=== PATIENT | female | born 1985 | race Caucasian/White ===

== ENCOUNTER 2017-02-23 08:39 | Emergency (ER) | payer OTHER ==
[~2017-02-23] VITALS: Ht 160 cm; Wt 83.0 kg
[~2017-02-23 08:39] MED LIST: SERT50TA PO; [UNRECOGNIZED DRUG - REMARK] TOP
[2017-02-23 08:48] VITALS: Ht 160 cm; Wt 83.0 kg
[2017-02-23] MEDS ORDERED: KETOROLAC TROMETHAMINE 60 MG/2 ML VIAL IM STA (09:07)
[2017-02-23] MEDS ORDERED: DEXAMETHASONE SOD INJ 4 MG/ML 5 ML VIAL IM STA (09:07)
[2017-02-23] MEDS ORDERED: DEXAMETHASONE **PF** INJ 10 MG/ML VIAL IM ONE (09:15)
[2017-02-23] MEDS ORDERED: CYCL5TAB PO ×2 (10:16→10:29)
[2017-02-23] MEDS ORDERED: OXYC1TAB3 PO ×2 (10:16→10:29)
[2017-02-23] MEDS ORDERED: METH4PAK PO ×2 (10:16→10:29)
--- NOTE | 2017-02-23 10:17 | EMERGENCY ROOM VISIT NOTE ---
History First contact with patient: 08:57 Chief Complaint: BACK PAIN Stated Complaint: EXTREME BACK AND LEG PAIN History of Present Illness The patient is a 32 year old female who presents to the Emergency Room via private vehicle accompanied by family with complaints of "extreme back and leg pain". The patient states that she has a history of low back pain, and notes that since 6 AM this morning she has had sharp shooting pain down both legs, and notes pain in the low back region. There is no urinary symptoms. She denies taking anything for pain today. It is worse with movement. She rates the pain as a 9/10. There is no abdominal pain, urinary symptoms, cauda equina syndrome symptoms. She states this feels worse than previous bulging disc. Review of Systems A complete 6-point Review of Systems was discussed with the patient, with pertinent positives and negatives listed in the History of Present Illness. All remaining Review of Systems questions can be considered negative unless otherwise specified. Past Medical/Surgical History Medical Problems: (1) Anxiety (2) Back pain Family History Patient reports no known family medical history. Social History Smoking Status: Current Every Day Smoker Alcohol Use: occasionally Marital Status: Housing Status: lives with family, lives with significant other Occupation Status: employed Current/Historical Medications Scheduled Cyclobenzaprine Hcl (Flexeril), 5 MG PO TID Methylprednisolone (Medrol Dosepak), 0 PO DAILY Scheduled PRN Oxycodone Ir (Roxicodone Ir), 1-2 TAB PO Q4H PRN for Pain Physical Exam Vital Signs Date Time Temp Pulse Resp B/P (MAP) Pulse Ox O2 Delivery O2 Flow Rate FiO2 02/23/17 10:28 36.9 78 18 132/90 99 02/23/17 10:26 78 18 132/90 99 Room Air 02/23/17 08:48 36.9 79 18 170/122 99 Room Air Physical Exam VITAL SIGNS - Vital signs and nursing notes were reviewed. Stable. Hypertensive. GENERAL - 32-year-old female appearing her stated age who is in no acute distress. Communicates well with provider and answers questions appropriately. SKIN - Without rashes. HEAD - NC/AT. EYES - Sclera anicteric. EARS - No deformities of external structures noted on gross examination bilaterally. NOSE - Midline and without cyanosis. No epistaxis or purulent drainage noted. MOUTH/OROPHARYNX - Without perioral cyanosis. LUNGS - Chest wall symmetric without accessory muscle use, intercostals retractions, or central cyanosis. Normal vesicular breath sounds CTA B/L. No wheezes, rales, or rhonchi appreciated. CARDIAC - RRR with S1/S2. No murmur, rubs, or gallops appreciated. ABDOMEN - Abdominal contour normal without pulsations or visible masses. BS normoactive all four quadrants. No tenderness, palpable masses, hepatosplenomegaly, or ascites noted. EXTREMITIES - No clubbing or peripheral cyanosis. No pretibial edema present. Negative straight leg raise. +5/5 strength noted in UE/LE bilaterally. NEUROLOGIC - Cranial nerves II through XII grossly intact. Sensory intact to light touch throughout. PSYCH - A&O, and cooperates fully with examiner. Pt is very pleasant and interacts well with examiner. Medical Decision & Procedures Medications Administered Medications (Trade) Dose Ordered Sig/Tara Route Start Time Stop Time Status Last Admin Dose Admin Ketorolac Tromethamine (Toradol Inj) 60 mg NOW STAT IM 02/23/17 09:07 02/23/17 09:09 DC 02/23/17 09:07 60 MG Dexamethasone Sodium Phosphate (Dexamethasone Inj Pf) 10 mg NOW ONCE IM 02/23/17 09:15 02/23/17 09:17 DC 02/23/17 09:15 10 MG Medical Decision Patient was seen and evaluated as above. After obtaining a thorough history and physical examination decision was made to provide Toradol as well as Decadron. I suspect she likely has either a small bulging disc or lumbar strain and perhaps both. She was reevaluated and was feeling better. Vital signs improved. I believe she is stable for outpatient management. There is no evidence of neurologic or vascular deficit. She is to follow-up with the family doctor. She was given a short course of pain medication, steroids and muscle relaxers. She was educated upon management, educated upon worrisome symptoms which to return, had questions and provided discharge, and was discharged home in good condition. No red flag identified in the [employer] drug monitoring system. She denied chance of . In evaluation treatment this patient following differential diagnoses were entertained: Lumbar strain, sprain, fracture, dislocation, herniated disc, among others. Impression Primary Impression: Back pain Departure Information Dispostion Home / Self-Care Condition GOOD Prescriptions Oxycodone Ir (Roxicodone Ir) 5 Mg Tab 1-2 TAB PO Q4H Y for Pain, #15 TAB For Initial Treatment Prov: Pablo Paul PA-C 02/23/17 Cyclobenzaprine Hcl (FLEXERIL) 5 Mg Tab 5 MG PO TID for 5 Days, #15 TAB PRN Prov: Pablo Paul PA-C 02/23/17 Methylprednisolone (MEDROL DOSEPAK) 4 Mg [place] 0 PO DAILY, #1 PKT Prov: Pablo Paul PA-C 02/23/17 Referrals Jimi Lacy M.D. (PCP) Patient Instructions My [facility] Additional Instructions You have been treated in the Emergency Department for Back Pain. You have been prescribed Oxy IR to be used for pain control. This is a narcotic medication. You cannot drive or consume alcohol while on this medicine. This medicine should only be used for pain that cannot be controlled with over-the- counter pain medicines. You have been prescribed Flexeril (cyclobenzaprine) 1-2 tabs orally, three times per day. Do NOT exceed 30 mg (6 tabs) per day. Take your first dose at bedtime as it can make you drowsy. Always take all medications as prescribed. You have been prescribed a Medrol Dosepak. Take this medication as prescribed. You should take the COMPLETE 6-day course of this medication. This is an anti- inflammatory medicine that will help to minimize your symptoms. Please start tomorrow For pain control, you can use the following cowj-[id number]-vixyymc medicines (if >12 yo): - Regular strength (325mg/tab) Tylenol (acetaminophen) 2 tabs every 4-6 hours as needed. Do not exceed 12 tablets in a 24 hour period. Avoid taking more than 3 grams (3000 mg) of Tylenol per day. This includes any other sources of acetaminophen you may take on a regular basis. - Regular strength (200 mg/tab) Advil (ibuprofen) 1-2 tabs every 4-6 hours as needed. Do not exceed a dose of 3200 mg per day. If this is an acute injury, ice can be applied to the area of pain for the first 3 days to help decrease pain and inflammation. After the first 3 days, a heating pad can be used over the area for continued soothing relief. You should schedule a follow-up appointment in 2-3 days with your Primary Care Provider for further evaluation and treatment of your back pain. Return to the Emergency Department if your current symptoms worsen despite treatment course outlined above, or if you develop any of the following symptoms : intractable pain despite aforementioned treatment course, loss of control of your bowel or bladder, numbness or tingling in your groin, or development of a fever.
[2017-02-23 10:28] VITALS: BP 132/90; PULSE 78; TEMP 36.9; O2SAT 99
== END 2017-02-23 10:29 | disposition home or self-care (01) ==
LOC: C.EDB 08:40
DX: M54.9 Dorsalgia, unspecified (principal); F41.9 Anxiety disorder, unspecified; F17.200 Nicotine dependence, unspecified, uncomplicated